=== PATIENT | female | born 2000 | race African-American/Black ===

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

== ENCOUNTER 2022-03-18 15:52 | Emergency (ER) | payer OTHER ==
[2022-03-18 16:12] VITALS: BP 121/62; PULSE 101; RESP 19; TEMP 100.2; BMI 27.4
[2022-03-18] MEDS ORDERED: IBUPROFEN 600 MG TABLET (FP) PO ONE ×2 (16:54→17:02)
== END 2022-03-18 18:45 | disposition home or self-care (01) ==
LOC: JER 15:52
DX: R50.9 Fever, unspecified (principal); R51.9 Headache, unspecified
CPT/HCPCS: 0241U-QW; 99283-25

== ENCOUNTER 2022-08-03 09:44 | Emergency (ER) | payer SELFPAY ==
[2022-08-03 10:04] VITALS: BP 98/60; PULSE 70; RESP 18; TEMP 98.3; BMI 27.4
[2022-08-03] MEDS ORDERED: LACTATED RINGERS SOLUTION 1000 ML INFUS.BAG IV ONE ×2 (10:21→10:38)
[2022-08-03] MEDS ORDERED: ONDANSETRON 4 MG/2 ML VIAL IVPUSH ONE ×2 (10:21→10:38)
[2022-08-03] MEDS ORDERED: FAMOTIDINE 20 MG/50 ML IVPB 20 MG/50 ML MG IVPB ONE ×2 (10:21→10:37)
[2022-08-03] MEDS ORDERED: ONDANSETRON 4 MG/2 ML VIAL ONE ×2 (10:37→10:39)
[2022-08-03 11:27] LABS: HEMATOCRIT 44.1 % (32.4-45.2); HEMOGLOBIN 14.3 GM/dL (10.7-15.3); MCH 27.6 pg (25.7-33.7); MCHC 32.3 g/dl (32.0-36.0); MEAN CELL VOLUME 85.3 fl (80-96); MEAN PLT VOLUME 9.5 fl (7.5-11.1); PLATELET COUNT 271 10^3/uL (134-434); RBC 5.17 M/mm3 (3.60-5.2); RDW 12.7 % (11.6-15.6)
[2022-08-03 11:41] LABS: CALCIUM 9.6 mg/dL (8.5-10.1)
[2022-08-03 11:42] LABS: ALBUMIN 4.3 g/dl (3.4-5.0); BLOOD UREA NITROGEN 12.1 mg/dL (7-18); MAGNESIUM 2.1 mg/dL (1.8-2.4)
[2022-08-03 11:45] LABS: CREATININE 0.6 mg/dL (0.55-1.3)
[2022-08-03 11:46] LABS: BILIRUBIN,TOTAL 0.7 mg/dL (0.2-1); TOT PROT 7.8 g/dl (6.4-8.2)
[2022-08-03 14:46] LABS: ANISOCYTOSIS 0; HELMET CELLS 0; HOWELL-JOLLY BODIES 0; MACROCYTOSIS 0; OVALOCYTE 0; ROULEAU 0; SICKELED CELLS 0; TARGET CELLS 0; TEAR DROP CELLS 0; TOXIC GRANULATION 0
== END 2022-08-03 11:34 | disposition left against medical advice (07) ==
LOC: JER 09:44
PROC: 3E033GC Introduction of Other Therapeutic Substance into Peripheral Vein, Percutaneous Approach (ICD-10-PCS; principal; 2022-08-03)
PROC: 3E033GC Introduction of Other Therapeutic Substance into Peripheral Vein, Percutaneous Approach (ICD-10-PCS; 2022-08-03)
PROC: 3E033GC Introduction of Other Therapeutic Substance into Peripheral Vein, Percutaneous Approach (ICD-10-PCS; 2022-08-03)
DX: R11.2 Nausea with vomiting, unspecified (principal); R19.7 Diarrhea, unspecified
CPT/HCPCS: 36415; 80053; 83690; 83735; 85025; 99284-25